=== PATIENT | female | born 1955 | race Caucasian/White ===

== ENCOUNTER → 2021-06-03 14:11 | Outpatient (CLI) | payer OTHER, SELFPAY ==
--- NOTE | 2021-06-03 14:13 | DI.RAD.S_ITS ---
PROCEDURE: XR HAND LT MIN 3V INDICATIONS: index finger injury TECHNIQUE: 3 views of the hand(s) acquired. COMPARISON: None. FINDINGS: Bones: No fractures or dislocations. Carpal bones are normally aligned. No suspicious bony lesions. Soft tissues: No suspicious soft tissue calcifications. IMPRESSION: No fracture. No acute osseous lesion. If symptoms and/or clinical suspicion for pathology persists, further assessment with repeat radiographs (7-10 days) or advanced imaging (e.g. CT, MRI or bone scan) should be considered. Dictated by: Karli Bellamy MD, PhD on 06/03/2021 at 14:36 Approved by: Karli Bellamy MD, PhD on 06/03/2021 at 14:37
== END ==
PROVIDERS: Referring Provider Physician Assistant; Visit Provider Physician Assistant
DX: S69.82XA Other specified injuries of left wrist, hand and finger(s), initial encounter (principal); X58.XXXA Exposure to other specified factors, initial encounter
CPT/HCPCS: 73130